=== PATIENT | female | born 1970 | race Asian ===

== ENCOUNTER → 2017-11-18 | Day surgery (SDC) | payer OTHER ==
--- OUTSIDE RECORDS SUMMARY | 2017-11-18 09:23 | XMS REPORT ---
:1970 Author Organization eClinicalWorks Care Team Providers Name Role Phone Ignacia Mosherh Provider Role Unavailable Allergies, Adverse Reactions, Alerts Substance Reaction Event Type N.K.D.A. 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
--- OUTSIDE RECORDS SUMMARY | 2017-11-18 09:23 | XMS REPORT ---
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
--- OUTSIDE RECORDS SUMMARY | 2017-11-18 09:23 | XMS REPORT ---
:1970 Author Organization eClinicalWorks Care Team Providers Name Role Phone Nomi [facility] Provider Role Unavailable Allergies, Adverse Reactions, Alerts Substance Reaction Event Type N.K.D.A. 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
--- OUTSIDE RECORDS SUMMARY | 2017-11-18 09:24 | XMS REPORT ---
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
--- OUTSIDE RECORDS SUMMARY | 2017-11-18 09:24 | XMS REPORT ---
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
--- OUTSIDE RECORDS SUMMARY | 2017-11-18 09:24 | XMS REPORT ---
:1970 Author Organization eClinicalWorks Care Team Providers Name Role Phone Cathy Esquivel Provider Role Unavailable Allergies, Adverse Reactions, Alerts Substance Reaction Event Type N.K.D.A. Info Not Available Non Drug Allergy Problems Problem Type Condition Code Onset Dates Condition Status Problem Mixed hyperlipidemia E78.2 Active Problem Iron deficiency anemia due to D50.8 Active dietary causes Problem Language barrier affecting health Z78.9 Active care Assessment Encounter for screening mammogram Z12.31 Active for malignant neoplasm of breast Assessment Language barrier affecting health Z78.9 Active care Problem Controlled type 2 diabetes mellitus E11.9 Active without complication, unspecified whether termite treater helper insulin use Assessment Well woman exam with routine Z01.419 Active gynecological exam Medications Medication Code Code Instructions Start End Date Status Dosage System Date Metformin HCl [facility] 37373875471 1000 MG Orally July 29, Active 1 tablet Twice a day 2017 with a meal Results No Known Results Summary Purpose [employer] Submission
--- OUTSIDE RECORDS SUMMARY | 2017-11-18 09:24 | XMS REPORT ---
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
--- OUTSIDE RECORDS SUMMARY | 2017-11-18 09:24 | XMS REPORT ---
[...] mellitus E11.9 Active without complication, unspecified whether exterminator insulin use Medications No Known Medications Results No Known Results Summary Purpose eClinicalWorks Submission
--- OUTSIDE RECORDS SUMMARY | 2017-11-18 09:24 | XMS REPORT ---
[...] mellitus E11.9 Active without complication, unspecified whether remote computer terminal operator insulin use Medications No Known Medications Results No Known Results Summary Purpose eClinicalWorks Submission
--- NOTE | 2017-11-18 10:42 | RAD REPORT ---
EXAM DESCRIPTION: US - Breast Core BX w/US Guidance - 11/18/2017 10:01 am CLINICAL HISTORY: R92.8 COMPARISON: Prior mammogram and sonography studies October 2017 TECHNIQUE: Patient presents for ultrasound-guided biopsy of a previously detailed 18 millimeter oval mass in the axillary tail right breast. The ultrasound-guided core biopsy procedure, risks and alternatives were discussed with the patient i n detail. After answering all questions, both oral and written consent were obtained. Patient had no contraindicated allergy or medication history. Preliminary sonographic imaging again identified the mass in question. Overlying breast tissue was pr epped and draped in the usual sterile fashion. From a lateral approach, the skin and deeper tissues w ere anesthetized with 1% lidocaine. Under direct sonographic visualization, a 14 gauge vacuum assiste d core biopsy needle was advanced. Tip was placed at the lateral margin of the mass and a 2 centimete r core was obtained. Needle was withdrawn. Post biopsy imaging showed the needle passing through the lesion. A second core biopsy was obtained in a slightly different portion of the mass. Again, imaging showed evidence for the needle passing through the lesion. Direct pressure was applied to the puncture site. The 2 core specimens were given to pathology for ev aluation. Under direct sonographic visualization a biopsy localization clip was placed within the lat eral margin of the mass. Direct pressure was applied to the puncture site and axillary tail until hem ostasis was obtained. Post imaging showed no hematoma. Sterile bandage was placed to the puncture sit e. Postprocedure care and precaution instructions were given to the patient. IMPRESSION: Ultrasound-guided core biopsy was performed of the axillary tail mass. Biopsy localizati on clip was placed. All biopsy material was given to pathology for histologic assessment.
== END | disposition home or self-care (01) ==
LOC: DS 09:21
PROVIDERS: ATTEND Obstetrics & Gynecology
PROC: 0HBT3ZX Excision of Right Breast, Percutaneous Approach, Diagnostic (ICD-10-PCS; principal; 2017-11-18)
DX: N60.21 Fibroadenosis of right breast (principal)
CPT/HCPCS: 19083; 88305

== ENCOUNTER 2019-02-28 18:55 | Emergency (ER) | payer OTHER ==
--- OUTSIDE RECORDS SUMMARY | 2019-02-28 18:58 | XMS REPORT ---
[...] E11.9 Active without complication, unspecified whether termite control technician insulin use Medications No Known Medications Results No Known Results Summary Purpose eClinicalWorks Submission
--- OUTSIDE RECORDS SUMMARY | 2019-02-28 18:58 | XMS REPORT ---
[...] mellitus E11.9 Active without complication, unspecified whether film maker insulin use Medications No Known Medications Results No Known Results Summary Purpose eClinicalWorks Submission
--- OUTSIDE RECORDS SUMMARY | 2019-02-28 18:58 | XMS REPORT ---
[...] mellitus E11.9 Active without complication, unspecified whether rn long term care insulin use Medications No Known Medications Results No Known Results Summary Purpose eClinicalWorks Submission
--- OUTSIDE RECORDS SUMMARY | 2019-02-28 18:58 | XMS REPORT ---
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
--- OUTSIDE RECORDS SUMMARY | 2019-02-28 18:58 | XMS REPORT ---
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
--- OUTSIDE RECORDS SUMMARY | 2019-02-28 18:58 | XMS REPORT ---
[...] mellitus E11.9 Active without complication, unspecified whether manager long term care insulin use Assessment Well woman exam with routine Z01.419 Active gynecological exam Medications Medication Code Code Instructions Start End Date Status Dosage System Date Metformin HCl [facility] [id number] 1000 MG Orally July 29, Active 1 tablet Twice a day 2017 with a meal Results No Known Results Summary Purpose [employer] Submission
--- OUTSIDE RECORDS SUMMARY | 2019-02-28 18:58 | XMS REPORT ---
[...] mellitus E11.9 Active without complication, unspecified whether longterm insulin use Assessment Diarrhea, unspecified type R19.7 Active Medications Medication Code Code Instructions Start End Date Status Dosage System Date Metformin HCl [facility] [id number] 1000 MG Orally July 29, Active 1 tablet Twice a day 2017 with a meal Results No Known Results Summary Purpose eClinicalWorks Submission
--- OUTSIDE RECORDS SUMMARY | 2019-02-28 18:58 | XMS REPORT ---
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
--- OUTSIDE RECORDS SUMMARY | 2019-02-28 18:58 | XMS REPORT ---
:1970 Author Organization eClinicalWorks Care Team Providers Name Role Phone Nomi [facility] Provider Role Unavailable Allergies, Adverse Reactions, Alerts Substance Reaction Event Type N.K.D.A. 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
[2019-02-28] MEDS ORDERED: CEFTRIAXONE/SWI 1gm 1 GM/10 ML SYR ONE (19:51)
[2019-02-28] MEDS ORDERED: NA CHLORIDE 0.9% 1,000 ML ONE (19:51)
--- NOTE | 2019-02-28 20:08 | RAD REPORT ---
EXAM DESCRIPTION: CT - Head Brain Wo Cont - 02/28/2019 7:57 pm CLINICAL HISTORY: Dizziness COMPARISON: None. TECHNIQUE: Computed axial tomography of the head was obtained. IV contrast was not requested. All CT scans are performed using dose optimization technique as appropriate and may include automated exposure control or mA/KV adjustment according to patient size. FINDINGS: An intracranial bleed is not seen . The ventricles are normal in caliber. No extra-axial fluid collection is noted. Fluid within the sinuses/ mastoids is not seen. Chronic opacification of the left mastoids. Minimal chronic sphenoid sinusitis IMPRESSION: No acute intracranial abnormality is seen. If patient's symptoms persist MRI of the bra in would be recommended.
[2019-02-28 20:14] LABS: Absolute Lymphocytes (CBC) 2.3 K/uL (0.7-4.9); Basophils % 0.3 % (0-1.3); Hematocrit 37.7 % (36.0-45.0); Lymphocytes % 25.1 % (15.3-44.8); MPV 9.1 fL (7.6-11.3); RBC Red Blood Cell Count 5.67 M/uL (3.86-4.86)
[2019-02-28 20:15] LABS: Protime INR 0.93
[2019-02-28 20:29] LABS: ALT/SGPT 26 U/L (12-78); AST/SGOT 16 U/L (15-37); Albumin 3.8 g/dL (3.4-5.0); Alkaline Phosphatase 76 U/L (45-117); BUN Blood Urea Nitrogen 8 mg/dL (7-18); Bicarbonate 30 mmol/L (21-32); Bilirubin Direct 0.1 mg/dL (0-0.2); Bilirubin Total 0.4 mg/dL (0.2-1.0); Glucose Level 133 mg/dL (74-106); Lipase 155 U/L (73-393); Magnesium 2.4 mg/dL (1.8-2.4); NT PRO-BNP 39 pg/mL (<125); Potassium 3.8 mmol/L (3.5-5.1); Protein, Total 8.2 g/dL (6.4-8.2); Sodium Level 139 mmol/L (136-145); Troponin (Emerg Dept Use Only) < 0.02 ng/mL (0.0-0.045)
--- NOTE | 2019-02-28 20:38 | ER ---
Nurse's Notes [facility] Name: Shirley Ordoñez Age: 48 yrs Sex: Female : 1970 Arrival Date: 02/28/2019 Time: 18:58 Bed 6 Private MD: Diagnosis: Cough;Chronic sphenoidal sinusitis;Acute upper respiratory infection, unspecified Presentation: 02/28 19:21 Presenting complaint: Patient states: fever, cough, \T\ headache x 1 week. States she has aa1 been coughing so hard that it makes her stomach her and she throws up. Also reports for the past 2 days her L eye has been watering and has pain behind it. Transition of care: patient was not received from another setting of care. Onset of symptoms was February 21, 2019. Risk Assessment: Do you want to hurt yourself or someone else? Patient reports no desire to harm self or others. Initial Sepsis Screen: Does the patient meet any 2 criteria? HR > 90 bpm. Does the patient have a suspected source of infection? No. Patient's initial sepsis screen is negative. Care prior to arrival: None. 19:21 Method Of Arrival: Ambulatory aa1 19:21 Acuity: [place] 3 aa1 Triage Assessment: 19:24 General: Appears in no apparent distress. comfortable, Behavior is calm, cooperative, aa1 appropriate for age. 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 - Social history:: Smoking status: Patient/guardian denies using tobacco. - Ebola Screening: : Patient denies exposure to infectious person Patient denies travel to an Ebola-affected area in the 21 days before illness onset. - Family history:: not pertinent. Screenin:28 Abuse screen: Denies threats or abuse. Nutritional screening: No deficits noted. jd3 Tuberculosis screening: No symptoms or risk factors identified. Fall Risk Ambulatory Aid- None/Bed Rest/Nurse Assist (0 pts). Gait- Normal/Bed Rest/Wheelchair (0 pts) Mental Status- Oriented to own ability (0 pts). Total Bourne Fall Scale indicates No Risk (0-24 pts). Assessment: 19:57 General: Appears in no apparent distress. uncomfortable, Behavior is calm, cooperative, jd3 appropriate for age. Pain: Complains of pain in abdomen Quality of pain is described as aching. Neuro: Level of Consciousness is awake, alert, obeys commands, Oriented to person, place, time, situation. Cardiovascular: Capillary refill < 3 seconds Patient's skin is warm and dry. Respiratory: Airway is patent Respiratory effort is even, unlabored, Respiratory pattern is regular, symmetrical. GI: Abdomen is flat, non-distended, Abd is soft and non tender X 4 quads. Reports nausea. : No signs and/or symptoms were reported regarding the genitourinary system. EENT: No signs and/or symptoms were reported regarding the EENT system. Derm: Skin is intact, Skin is dry, Skin is normal, Skin temperature is warm. Musculoskeletal: Circulation, motion, and sensation intact. Range of motion: intact in all extremities. 20:30 Reassessment: Patient appears in no apparent distress at this time. No changes from jd3 previously documented assessment. Patient and/or family updated on plan of care and expected duration. Pain level reassessed. Patient is alert, oriented x 3, equal unlabored respirations, skin warm/dry/pink. 21:25 Reassessment: awaiting discharge medication infusion before discharge. jd3 22:07 Reassessment: Patient appears in no apparent distress at this time. Patient is alert, aa1 oriented x 3, equal unlabored respirations, skin warm/dry/pink. Discussed d/c \T\ f/u instructions with pt; denies questions or concerns at this time. Ambulatory to lobby with steady gait. Patient states feeling better. Vital Signs: 19:24 BP 140 / 92; Pulse 94; Resp 18; Temp 98.2; Pulse Ox 100% on R/A; Weight 43.09 kg; aa1 Height 5 ft. 2 in. (157.48 cm); Pain 10/10; 21:25 BP 113 / 82; Pulse 80; Resp 18 S; Pulse Ox 100% on R/A; jd3 19:24 Body Mass Index 17.38 (43.09 kg, 157.48 cm) aa1 ED Course: 18:58 Patient arrived in ED. mr 19:20 Andreas Jefferson MD is Attending Physician. cas 19:23 Triage completed. aa1 19:24 Arm band placed on right wrist. aa1 19:55 Patient has correct armband on for positive identification. Placed in gown. Bed in low jd3 position. Call light in reach. Side rails up X 1. Adult w/ patient. 19:57 Donavan Leahy, RN is Primary Nurse. jd3 19:58 CT Head Brain wo Cont In Process Unspecified. EDMS 20:03 Inserted saline lock: 20 gauge antecubital area, using aseptic technique. Blood oe collected. 20:12 XRAY Chest (1 view) In Process Unspecified. EDMS 20:34 Tatiana Alvarado MD is Referral Physician. [facility] 22:07 No provider procedures requiring assistance completed. Patient did not have IV access aa1 during this emergency room visit. Administered Medications: 21:22 Drug: NS 0.9% 1000 ml Route: IV; Rate: 1 bolus; Site: right antecubital; jd3 22:05 Follow up: IV Status: Completed infusion; IV Intake: 1000ml aa1 21:22 Drug: Rocephin 1 grams Route: IV; Rate: per protocol; Site: right antecubital; jd3 Intake: 22:05 IV: 1000ml; Total: 1000ml. aa1 Outcome: 20:38 Discharge ordered by . [facility] 22:07 Discharged to home ambulatory, with family. aa1 22:07 Condition: good 22:07 Discharge instructions given to patient, family, Instructed on discharge instructions, follow up and referral plans. medication usage, Demonstrated understanding of instructions, follow-up care, medications, Prescriptions given X 2. 22:09 Patient left the ED. aa1 Signatures: Dispatcher [employer] [employer]am [employer], LIA RN aa1 Andreas Jefferson MD MD cha Rivera, Michelle mr GeorgeVasquez Jonathon, RN RN jd3
--- NOTE | 2019-02-28 20:39 | EDPHYS ---
Physician Documentation [facility] Name: Shirley Ordoñez Age: 48 yrs Sex: Female : 1970 Arrival Date: 02/28/2019 Time: 18:58 Bed 6 Private MD: ED Physician Andreas Jefferson HPI: 02/28 19:31 This 48 yrs old Female presents to ER via Ambulatory with complaints of Cough, cas Abdominal Pain, Ear Pain, Headache. 19:31 The patient or guardian reports cough. Onset: The symptoms/episode began/occurred 2 cas day(s) ago. Severity of symptoms: At their worst the symptoms were mild, in the emergency department the symptoms are unchanged. Modifying factors: The symptoms are alleviated by nothing, the symptoms are aggravated by nothing. Associated signs and symptoms: The patient has no apparent associated signs or symptoms. The patient has not experienced similar symptoms in the past. 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 - Social history:: Smoking status: Patient/guardian denies using tobacco. - Ebola Screening: : Patient denies exposure to infectious person Patient denies travel to an Ebola-affected area in the 21 days before illness onset. - Family history:: not pertinent. ROS: 19:31 Constitutional: Negative for fever, chills, and weight loss, Eyes: Negative for injury, cas pain, redness, and discharge, ENT: Negative for injury, pain, and discharge, Neck: Negative for injury, pain, and swelling, Cardiovascular: Negative for chest pain, palpitations, and edema, Abdomen/GI: Negative for abdominal pain, nausea, vomiting, diarrhea, and constipation, Back: Negative for injury and pain, : Negative for injury, bleeding, discharge, and swelling, MS/Extremity: Negative for injury and deformity, Skin: Negative for injury, rash, and discoloration, Neuro: Negative for headache, weakness, numbness, tingling, and seizure, Psych: Negative for depression, anxiety, suicide ideation, homicidal ideation, and hallucinations, Allergy/Immunology: Negative for hives, rash, and allergies, Endocrine: Negative for neck swelling, polydipsia, polyuria, polyphagia, and marked weight changes, Hematologic/Lymphatic: Negative for swollen nodes, abnormal bleeding, and unusual bruising. 19:31 Respiratory: Positive for cough. 19:31 Neuro: Positive for headache. Exam: 19:31 Constitutional: This is a well developed, well nourished patient who is awake, alert, cas and in no acute distress. Head/Face: Normocephalic, atraumatic. Eyes: Pupils equal round and reactive to light, extra-ocular motions intact. Lids and lashes normal. Conjunctiva and sclera are non-icteric and not injected. Cornea within normal limits. Periorbital areas with no swelling, redness, or edema. ENT: Nares patent. No nasal discharge, no septal abnormalities noted. Tympanic membranes are normal and external auditory canals are clear. Oropharynx with no redness, swelling, or masses, exudates, or evidence of obstruction, uvula midline. Mucous membranes moist. Neck: Trachea midline, no thyromegaly or masses palpated, and no cervical lymphadenopathy. Supple, full range of motion without nuchal rigidity, or vertebral point tenderness. No Meningismus. Chest/axilla: Normal chest wall appearance and motion. Nontender with no deformity. No lesions are appreciated. Cardiovascular: Regular rate and rhythm with a normal S1 and S2. No gallops, murmurs, or rubs. Normal PMI, no JVD. No pulse deficits. Respiratory: Lungs have equal breath sounds bilaterally, clear to auscultation and percussion. No rales, rhonchi or wheezes noted. No increased work of breathing, no retractions or nasal flaring. Abdomen/GI: Soft, non-tender, with normal bowel sounds. No distension or tympany. No guarding or rebound. No evidence of tenderness throughout. Back: No spinal tenderness. No costovertebral tenderness. Full range of motion. Skin: Warm, dry with normal turgor. Normal color with no rashes, no lesions, and no evidence of cellulitis. MS/ Extremity: Pulses equal, no cyanosis. Neurovascular intact. Full, normal range of motion. Neuro: Awake and alert, GCS 15, oriented to person, place, time, and situation. Cranial nerves II-XII grossly intact. Motor strength 5/5 in all extremities. Sensory grossly intact. Cerebellar exam normal. Normal gait. Psych: Awake, alert, with orientation to person, place and time. Behavior, mood, and affect are within normal limits. 19:31 Neck: ROM/movement: is normal, no acute changes, limited range of motion, is not appreciated, Meningeal signs: are not present, Kernig's sign is negative, Brudzinski's sign is negative. Vital Signs: 19:24 BP 140 / 92; Pulse 94; Resp 18; Temp 98.2; Pulse Ox 100% on R/A; Weight 43.09 kg; aa1 Height 5 ft. 2 in. (157.48 cm); Pain 10/10; 21:25 BP 113 / 82; Pulse 80; Resp 18 S; Pulse Ox 100% on R/A; jd3 19:24 Body Mass Index 17.38 (43.09 kg, 157.48 cm) aa1 MDM: 19:20 Patient medically screened. [facility] 19:34 Data reviewed: vital signs, nurses notes, lab test result(s), EKG, radiologic studies, [facility] CT scan, plain films. 02/28 19:31 Order name: Basic Metabolic Panel; Complete Time: 20:31 [facility] 02/28 19:31 Order name: CBC with Diff [facility] 02/28 19:31 Order name: LFT's; Complete Time: 20:31 [facility] 02/28 19:31 Order name: Magnesium; Complete Time: 20:31 [facility] 02/28 19:31 Order name: NT PRO-BNP; Complete Time: 20:31 [facility] 02/28 19:31 Order name: PT-INR; Complete Time: 20:31 [facility] 02/28 19:31 Order name: Troponin (emerg Dept Use Only); Complete Time: 20:31 [facility] 02/28 19:31 Order name: XRAY Chest (1 view) [facility] 02/28 19:31 Order name: CT Head Brain wo Cont; Complete Time: 20:31 [facility] 02/28 19:31 Order name: Blood Culture Adult (2) [facility] 02/28 19:31 Order name: Influenza Screen (a \T\ B); Complete Time: 20:31 [facility] 02/28 19:31 Order name: Lipase; Complete Time: 20:31 [facility] 02/28 20:19 Order name: CBC Smear Scan [facility] 02/28 19:31 Order name: EKG; Complete Time: 19:32 [facility] 02/28 19:31 Order name: Cardiac monitoring; Complete Time: 19:58 [facility] 02/28 19:31 Order name: EKG - Nurse/Tech; Complete Time: 21:22 [facility] 02/28 19:31 Order name: IV Saline Lock; Complete Time: 19:58 [facility] 02/28 19:31 Order name: Labs collected and sent; Complete Time: 19:58 [facility] 02/28 19:31 Order name: O2 Per Protocol; Complete Time: 19:46 [facility] 02/28 19:31 Order name: O2 Sat Monitoring; Complete Time: 19:46 [facility] Administered Medications: 21:22 Drug: NS 0.9% 1000 ml Route: IV; Rate: 1 bolus; Site: right antecubital; jd3 22:05 Follow up: IV Status: Completed infusion; IV Intake: 1000ml aa1 21:22 Drug: Rocephin 1 grams Route: IV; Rate: per protocol; Site: right antecubital; jd3 Disposition: 02/28/19 20:38 Discharged to Home. Impression: Cough, Chronic sphenoidal sinusitis, Acute upper respiratory infection, unspecified. - Condition is Stable. - Discharge Instructions: Sinusitis, Adult, Upper Respiratory Infection, Adult, Cool Mist Vaporizer, Cough, Adult, [id number], Cough, Adult. - Prescriptions for Bromfed DM 2- 30-10 mg/5 mL Oral syrup - take 10 milliliter by ORAL route every 6 hours; 150 milliliter. Augmentin 500- 125 mg Oral Tablet - take 1 tablet by ORAL route every 8 hours for 10 days; 30 tablet. - Medication Reconciliation Form, Thank You Letter, Antibiotic Education, Prescription Opioid Use form. - Follow up: Private Physician; When: 2 - 3 days; Reason: Recheck today's complaints, Continuance of care, Re-evaluation by your physician. Follow up: Tatiana Alvarado MD; When: 2 - 3 days; Reason: Recheck today's complaints, Re-evaluation by your physician. - Problem is new. - Symptoms have improved. Signatures: Dispatcher [employer] [facility] Pham Live RN RN aa1 Andreas Jefferson MD MD cha Davies, Jonathon, RN RN jd3 Corrections: (The following items were deleted from the chart) 22:09 20:38 02/28/2019 20:38 Discharged to Home. Impression: Cough; Chronic sphenoidal aa1 sinusitis; Acute upper respiratory infection, unspecified. Condition is Stable. Forms are Medication Reconciliation Form, Thank You Letter, Antibiotic Education, Prescription Opioid Use. Follow up: Private Physician; When: 2 - 3 days; Reason: Recheck today's complaints, Continuance of care, Re-evaluation by your physician. Follow up: Tatiana Alvarado; When: 2 - 3 days; Reason: Recheck today's complaints, Re-evaluation by your physician. Problem is new. Symptoms have improved. cas
--- NOTE | 2019-02-28 20:54 | RAD REPORT ---
EXAM DESCRIPTION: [facility] Single View02/28/2019 8:10 pm CLINICAL HISTORY: Cough COMPARISON: 2010 FINDINGS: Mild right basilar opacity. Left lung is clear. The heart is normal size IMPRESSION: Mild right basilar opacity may represent a mild pneumonia or confluence of ribs and vess els. If clinically indicated further evaluation with PA and lateral chest series could be obtained
[2019-02-28 22:23] VITALS: TEMP 98.2; O2SAT 100
[2019-02-28 22:24] VITALS: BP 113/82
[2019-02-28 22:32] LABS: Blood Morphology Comment NOTED (NOT SEEN); Hypochromasia 1+; Ovalocytes 2+; Platelet Estimate ADEQ; Urine White Blood Cell Casts OK
--- NOTE | 2019-03-02 20:50 | EKG ---
Test Date: 2019-02-28 Test Time: 21:10:40 Shift Supervisor Melting: POOJA MEASUREMENT RESULTS: Intervals: Rate: 73 [place]: 142 QRSD: 74 QT: 382 QTc: 420 [place]: P: 73 [place]: 142 QRS: 89 T: 60 INTERPRETIVE STATEMENTS: Normal sinus rhythm Normal ECG Compared to ECG 02/12/2011 16:00:08 No significant changes Electronically Signed On 03-02-19 20:46:59 TAFFY CANDY MAKER by Aneudy Velasquez
== END 2019-02-28 22:09 | disposition home or self-care (01) ==
LOC: ER 18:55
DX: R05 Cough (principal); J06.9 Acute upper respiratory infection, unspecified; J32.3 Chronic sphenoidal sinusitis; E11.9 Type 2 diabetes mellitus without complications
CPT/HCPCS: 96361; 93005; 87040 ×2; 85025; 80048; 36415; 83735; 85610; 80076; 84484; 83690; 83880; 87804 ×2; 70450; 71045; 96374; 99284; J0696; J7030